=== PATIENT | male | born 1985 | race Two or more races ===

== ENCOUNTER 2017-10-19 13:35 | Emergency (ER) | payer SELFPAY ==
[~2017-10-19] VITALS: Ht 182.9 cm; Wt 90.7 kg
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
--- NOTE | 2017-10-19 13:58 | NUR ---
TONNY STILES AT BEDSIDE FOR EVAL.
[2017-10-19] MEDS ORDERED: HYDROCODONE/APAP 10/325MG 1 EA TABLET PO ONE (14:00)
[2017-10-19] MEDS ORDERED: HYDROCODONE/APAP 10/325MG 1 EA TABLET ONE (14:03)
--- NOTE | 2017-10-19 14:49 | NUR ---
RADIOLOGY AT BEDSIDE FOR RFA XRAY.
--- NOTE | 2017-10-19 16:41 | NUR ---
SLING APPLIED. PT D/C HOME IN STABLE CONDITION.
[2017-10-19 16:42] VITALS: BP 132/80
== END 2017-10-19 16:43 | disposition home or self-care (01) ==
LOC: ER 13:41
DX: S53.401A Unspecified sprain of right elbow, initial encounter (principal); V49.49XA Driver injured in collision with other motor vehicles in traffic accident, initial encounter; Y93.89 Activity, other specified; Y92.413 State road as the place of occurrence of the external cause; Y99.8 Other external cause status
CPT/HCPCS: 71045; 73060; 73090; 99284; A4606; Z7610